=== PATIENT | female | born 1935 | race Caucasian/White ===

== ENCOUNTER 2021-03-08 11:13 | Emergency (ER) | payer OTHER, MEDICARE ==
[2021-03-08 11:59] VITALS: TEMP 98.8; BMI 23.0
[2021-03-08 12:30] LABS: BASO % 2.2 % (0-2.0); EOS % 2.9 % (0-4.5); HEMATOCRIT 24.8 % (32.4-45.2); HEMOGLOBIN 7.5 GM/dl (10.7-15.3); LYMPH % 17.5 % (8-40); MCHC 30.3 g/dl (32.0-36.0); MEAN CELL VOLUME 72.6 fl (80-96); MEAN PLT VOLUME 8.3 fl (7.5-11.1); MONO % 9.1 % (3.8-10.2); NEUT % 68.3 % (42.8-82.8); PLATELET COUNT 411 10^3/uL (134-434); RBC 3.41 M/mm3 (3.60-5.2); RDW 15.5 % (11.6-15.6); WHITE BLOOD COUNT 6.1 K/mm3 (4.0-10.8)
[2021-03-08 12:32] LABS: ADD RBC MORPHOLOGY YES
[2021-03-08 12:51] LABS: ALBUMIN 3.1 g/dl (3.4-5.0); BILIRUBIN,TOTAL 0.4 mg/dl (0.2-1); CALCIUM 8.3 mg/dl (8.5-10); CREATININE 1.2 mg/dl (0.55-1.3); TOT PROT 5.7 g/dl (6.4-8.2)
[2021-03-08 12:54] LABS: INR 1.31 (0.82-1.09); PROTHROMBIN TIME (PATIENT) 14.4 SEC (10.2-13.0)
[2021-03-08 14:00] LABS: LDH 191 U/L (84-246)
[2021-03-08 14:13] LABS: ANISOCYTOSIS 1+
[2021-03-08 14:57] LABS: EPITHELIAL CELLS FEW /hpf
[2021-03-08] MEDS ORDERED: SULFAMETHOXAZOLE/TRIMETHOPRIM 800MG/160MG D.S. TABLET PO ONE (15:07)
[2021-03-08] MEDS ORDERED: SULFAMETHOXAZOLE/TRIMETHOPRIM 800MG/160MG D.S. TABLET ONE (15:11)
[2021-03-08 16:04] VITALS: BP 132/56; PULSE 68
== END 2021-03-08 16:07 | disposition home or self-care (01) ==
LOC: FER 11:13
DX: N39.0 Urinary tract infection, site not specified (principal); D64.9 Anemia, unspecified
CPT/HCPCS: 36415; 80053; 81003; 81015; 82272; 82550; 82728; 83010; 83615; 84466; 84484; 85025; 85045; 85610; 85730; 86850; 86900; 86901; 87086; 87186; 93005; 99284-25; C9803; U0003; U0005